=== PATIENT | female | born 1930 | race Caucasian/White ===

== ENCOUNTER 2019-04-12 18:05 | Emergency (ER) | payer MEDICARE ==
[~2019-04-12 18:05] MED LIST: ACET325T12 PO; CETI10TA18 PO; CRAN1TAB5 PO; RANI150C PO; TRAZ-131 PO; [UNRECOGNIZED DRUG - OTHER] TOP
[2019-04-12 18:43] VITALS: BP 143/82
--- NOTE | 2019-04-12 18:45 | ER.PDOC ---
General Chief Complaint: Requesting Medical Care Stated Complaint: POSSIBLE DVT Time seen by MD: 18:23 Source: patient, EMS Exam Limitations: no limitations History of Present Illness Initial Comments [facility] and some swelling of L foot with reported concern for "a blood clot". Pt does not have complaints. Context: Unknown if recent trauma Exacerbated By: nothing Relieved By: nothing Allergies: Coded Allergies: No Known Allergies (Unverified , 06/23/18) Home Meds Reported Medications Trazodone Hcl (TRAZODONE HCL) 100 Mg Tablet, 1 TAB PO HS, #30 TAB 1 Refill 10/05/18 Acetaminophen (TYLENOL) 325 Mg Tablet, 650 MG PO Q8HR, TABLET 10/05/18 Ranitidine Hcl (RANITIDINE HCL) 150 Mg Capsule, 1 CAP PO BID, #60 CAP 5 Refills 10/05/18 [Nonyx] No Conflict Check, 0.25 APPLIC TOP BID 10/05/18 Cetirizine Hcl (CETIRIZINE HCL) 10 Mg Tablet, 1 TAB PO DAILY, #30 TAB 5 Refills 10/05/18 Cranberry Conc/C/Bacill Coag (AZO CRANBERRY TABLET) 1 Each Tablet, 1 EACH PO DAILY24, TABLET 10/05/18 Past Medical History Surgical History: appendectomy, hysterectomy Family History Significant Family History: no pertinent family hx Social History Drug Use: none Review of Systems Constitutional: no symptoms reported Respiratory: no symptoms reported Gastrointestinal: no symptoms reported Genitourinary: no symptoms reported Musculoskeletal: see HPI Skin: see HPI All Other Systems: Reviewed and Negative Physical Exam General Appearance: Alert Lower Extremity: pedal edema (b/l, L slightly more than R, but R with Coban wrap. Small region of ecchymosis distal foot.) Joint Exam: joints nml Skin: warm/dry EENT: eyes inspection nml Respiratory: no resp distress CVS: reg rate & rhythm Comments Dopplerable pulses b/l DP and PD noted. Results/Orders Results/Orders Vital Signs Date Time Temp Pulse Resp B/P (MAP) Pulse Ox O2 Delivery O2 Flow Rate FiO2 04/12/19 18:43 97.8 85 14 143/82 (102) 97 Room Air 97.8 04/12/19 18:36 97.8 85 14 97 Room Air 97.8 7/10/19 18:36 97.8 85 14 97.8 Progress Progress I spoke with hospice nurse for pt, and the areas of concern were the bruising over her distal foot and an area on the lateral lwer L leg that looked "a little red and veiny" Repeated exam specifiaclly in these areas, and pt has some varicose veins on lateral leg, with hematoma on distal foot. Pt has b/l LE edema and history of heart failure with a recent hold on her Lasix. No unilaterla leg swelling, no calf tenderness, no indication of DVT present at this time. Will d/c home. Departure Time of Disposition: 18:52 Disposition: 01 HOME, SELF-CARE Impression: Primary Impression: Traumatic hematoma of left foot Additional Impression: Varicose vein of leg Condition: Stable Referrals: MOISES [facility]END[facility] [employer] [facility] ATTENDANT (PCP) PRIMARY CARE PROVIDER Duration or Time Spent with Pa: 15 Problem Qualifiers Primary Impression: Traumatic hematoma of left foot Encounter type: initial encounter Qualified Codes: S90.32XA - Contusion of left foot, initial encounter Additional Impression: Varicose vein of leg Varicose vein complication: asymptomatic Laterality: left Qualified Codes: I83.92 - Asymptomatic varicose veins of left lower extremity BECCA CHERRY DO Apr 12, 2019 18:45
[2019-04-12 19:45] VITALS: BP 141/69
--- NOTE | 2019-04-12 19:45 | NUR ---
Departure Patient is assisted to wheelchair and assisted to family members car. Patient is placed in car by this nurse. Patient is accompanied by her granddaughter. Patient is in stable condtion at time of departure.
[2019-04-12 20:00] VITALS: BP 141/69
== END 2019-04-12 19:45 | disposition home or self-care (01) ==
LOC: EDBD 18:05 → ER 18:05
DX: S90.32XA Contusion of left foot, initial encounter (principal); I83.92 Asymptomatic varicose veins of left lower extremity; Z79.899 Other long term (current) drug therapy; Z90.710 Acquired absence of both cervix and uterus; X58.XXXA Exposure to other specified factors, initial encounter; Y93.89 Activity, other specified; Y92.128 Other place in nursing home as the place of occurrence of the external cause; Y99.8 Other external cause status
CPT/HCPCS: 99284